=== PATIENT | male | born 1950 | race Caucasian/White ===

== ENCOUNTER 2022-09-30 08:38 | Outpatient (CLI) | payer MEDICARE, SELFPAY ==
--- NOTE | 2022-09-30 06:00 | DI.RAD_ITS ---
Exam(s) XR PAIN CLINIC SACRIOILIAC 2V EXAM: XR PAIN CLINIC SACRIOILIAC 2V CLINICAL HISTORY: Dx: Sacroiliac Joint Dysfunction. TECHNIQUE: Fluoroscopy was provided for the referring physician for guidance with performing pain cl inic injection procedure. COMPARISON: No exams were available for comparison FINDINGS: Please see procedure note for details. Fluoro time: 20.4 seconds RADIATION DOSE DELIVERED: Ka,r=2.83 mGy
[2022-09-30 08:59] VITALS: BP 167/81; PULSE 56; RESP 20; TEMP 36.9; O2SAT 97
[2022-09-30] MEDS: Omnipaque 240 MG/ML 50 ML BTL IJ (09:39)
[2022-09-30] MEDS: methylPREDNISolone ACETATE 80 MG/ML VIAL IJ (09:51)
[2022-09-30 09:54] VITALS: BP 170/75; PULSE 63; RESP 17; O2SAT 96
--- NOTE | 2022-09-30 09:57 | PDOC.PAIN_ITS ---
Date of service: 09/30/22 Time of Service: 10:20 Pain Clinic Procedure Note Procedure Note Procedure Note: INTRA-ARTICULAR SI JOINT INJECTION Ham MULLER has been referred to the [facility] for intra- articular SI joint injection. COMMENTS: Patient has pain directly over the left sacroiliac joint. He is also experiencing left radicular pain to the left leg to the lateral thigh and calf along with left foot drop X 3..5 weeks. He did have a fall 3 months ago in which he hurt is back. He no strength to left ankle dorsiflexion on examination and 5/5 strength on the right. For this reason, I did order an MRI of the lumbar spine STAT. Dx: Left sacroiliac joint dysfunction. VAS pain was 4/10 prior to the procedure. Patient was interviewed and the medical record reviewed. There were no medical, pharmacologic, radiographic or other structural contraindications to attempting fluoroscopically guided intra-articular SI joint injection. Risks and expected side effects as well as potential benefit of the procedure were reviewed and voiced concerns addressed. The printed consent form was signed and witnessed. Standard time-out procedure was performed. Patient was placed in the prone position on the fluoroscopy table and automated blood pressure cuff and pulse oximeter applied. The skin entry point for approaching the left SI joint was identified under the most advantageous fluoroscopic view and marked. Following thorough Chlorhexadine preparation of the skin and draping and 1% lidocaine infiltration of the skin entry point and subcutaneous tissues, a 22 gauge spinal needle was placed under fluoroscopic guidance into the left SI joint was identified under the most advantageous fluoroscopic view and marked. Intra-articular placement was confirmed by a clear arthrogram resulting from the injection of 0.25ml Omnipaque 240, 1ml 1% lidocaine, and 40mg Depomedrol were injected intra-articularily with an initial reproduction of a significant component of the usual pain. Vital signs were stable throughout the procedure and were as recorded in the docflowsheet by the nursing staff. If given, dosages of intravenous drugs for anxiolysis and analgesia were documented in MAR. Follow up plans and appointments were discussed with the patient. Post procedure instruction was given as documented in nursing documentation and having met discharge criteria, and was discharged from the [facility] Management Center. COMMENTS: Post-procedure pain VAS was 3/10. If this procedure is helpful, it can be completed up to 3 times per 12 months. Ever Mcclain DO, MPH ABPMR-Pain Management [facility] CC: Tammy Patrick
== END 2022-09-30 08:39 | disposition home or self-care (01) ==
PROVIDERS: PCP Family Medicine; Visit Provider Preventive Medicine Occupational Medicine
DX: M54.50 Low back pain, unspecified (principal); M53.3 Sacrococcygeal disorders, not elsewhere classified
CPT/HCPCS: 72200; G0260; J1040; Q9967

== ENCOUNTER 2023-04-14 11:15 | Outpatient (CLI) | payer MEDICARE, SELFPAY ==
--- NOTE | 2023-04-14 06:00 | DI.RAD_ITS ---
Exam(s) XR PAIN CLINIC LUMBAR SP 2V EXAM: XR PAIN CLINIC LUMBAR SP 2V CLINICAL HISTORY: Dx: Lumbar Radiculopathy. TECHNIQUE: Fluoroscopy was provided for the referring physician for guidance with performing pain cl inic injection procedure. COMPARISON: No exams were available for comparison FINDINGS: Please see procedure note for details. Fluoro time: 32.8 seconds RADIATION DOSE DELIVERED: Ka,r=15.22 mGy
[2023-04-14 11:28] VITALS: BP 164/74; PULSE 53; RESP 20; TEMP 36.6; O2SAT 94
[2023-04-14] MEDS: Dexamethasone Sod. Phos./Pres-Free 10 MG/ML VIAL IJ (12:16)
[2023-04-14] MEDS: Omnipaque 240 MG/ML 50 ML BTL IJ (12:16)
[2023-04-14 12:17] VITALS: BP 142/72; PULSE 53; RESP 17; O2SAT 93
--- NOTE | 2023-04-14 12:18 | PDOC.PAIN ---
Date of service: 04/14/23 Time of Service: 12:18 Pain Managment Procedure Note Procedure Note Procedure Note: PROCEDURE NOTE LEFT L5 TRANSFORAMINAL EPIDURAL STEROID INJECTION Chief Complaint: LEFT leg pain. Date of Service: April 14, 2023 Patient: Ham MULLER Provider: Ever Dykes DO, MPH Ham Maris MULLER has been referred to the [facility] for a transforaminal epidural steroid injection. Pre-operative diagnosis: Lumbosacral Radiculopathy Post-operative diagnosis: Same Pre-Procedure Pain: VAS= 7/10 Comments: I previously evaluated the patient in our clinic and their symptoms remain the same as they were at that time. Ham was interviewed and the medical record reviewed. There were no medical, pharmacologic, radiographic or other structural contraindications to attempting a fluoroscopically-guided transforaminal lumbar epidural steroid injection. The risks, benefits, and potential side effects were reviewed with the patient. Risks include, but are not limited to, [id number] headache, infection, bleeding, nerve injury, spinal cord damage, allergic reaction, possible increase in symptoms over the ensuing 24 to 48 hours, paralysis, and . The patient appeared to understand, questions were answered to the patient?s satisfaction and the patient agreed to proceed. Once I obtained informed verbal consent, the printed consent form was signed by the patient and myself. A standard time-out procedure was performed. Ham was placed in the prone position on the fluoroscopy table and automated blood pressure cuff, three lead EKG, and pulse oximeter were applied. The skin entry point for entering/approaching the left L5 space for the transforaminal epidural steroid injection was marked. Following thorough chlorhexadine preparation of the skin and draping, 2 ml of 1% lidocaine was infiltrated into the skin over the entry point and subcutaneous tissues. Under fluoroscopic guidance, in ipsilateral oblique view, a co-axial approach using a 5 22G spinal needle was advanced to the base of the L5 pedicle. The needle was advanced to the superio-posterior aspect of the neural foramen under lateral view. Oblique and AP views were rechecked. Under AP and lateral views, 1 ml of Omnipaque-240 was injected while visualized with fluoroscopy. There was no evidence of intravascular or intrathecal uptake, the epidural space was delineated. Next 1.5 ml of preservative-free Dexamethasone (10 mg/ml) was injected after negative aspiration. This was followed by 1 ml of preservative-free 1% lidocaine. (49 mls of Omnipaque-240 was wasted) There was no unusual discomfort expressed by Ham. The needle was withdrawn without difficulty. Ham was observed and was without hemodynamic, neurologic, or allergic reactions.? Fluoroscopic images were digitally archived. Ham's vital signs were stable throughout the procedure and were as recorded in the docflowsheet by the nursing staff.? If given, dosages of intravenous drugs for anxiolysis and analgesia were documented in MAR. Follow up plans and appointments were discussed with Ham. Post procedure instruction was given as documented in nursing records and having met discharge criteria Ham was discharged from the Pain Management Center. COMMENTS: Post-procedure pain: VAS= 2/10. Ham to contact [facility] as needed. If at least 50% improvement in pain and/or function for at least 3 months is achieved, this procedure can be repeated. I personally performed this entire procedure. EVER DYKES DO, MPH ABPMR-subspecialty board certification in Pain Medicine [facility]
== END 2023-04-14 11:16 | disposition home or self-care (01) ==
LOC: PC 11:15
PROVIDERS: PCP Family Medicine; Visit Provider Preventive Medicine Occupational Medicine
DX: M54.50 Low back pain, unspecified (principal); M54.17 Radiculopathy, lumbosacral region
CPT/HCPCS: 64483; 72100; Q9967

== ENCOUNTER 2023-12-30 11:08 | Outpatient (CLI) | payer MEDICARE, SELFPAY ==
[2023-12-30 11:36] VITALS: BP 162/89; PULSE 54; RESP 20; TEMP 36.7; O2SAT 96
[2023-12-30 12:19] VITALS: BP 185/89; PULSE 54; RESP 13; O2SAT 95
[2023-12-30] MEDS: Nerve Block Tray 1 EACH MC (12:20)
[2023-12-30] MEDS: Omnipaque 240 MG/ML 50 ML BTL IJ (12:20)
[2023-12-30] MEDS: methylPREDNISolone ACETATE 80 MG/ML VIAL IJ (12:21)
--- NOTE | 2023-12-30 12:21 | PDOC.PAIN ---
Date of service: 12/30/23 Time of Service: 12:21 Pain Managment Procedure Note Procedure Note Procedure Note: PROCEDURE NOTE RIGHT INTRA-ARTICULAR SACROILIAC JOINT INJECTION Date of Service: December 30, 2023 Patient: Ham MULLER Provider: Ever Dykes DO, MPH COMMENTS: I previously evaluated the patient in the office and their symptoms in relation to the sacroiliac joint pain have remained the same. Pre-operative diagnosis: Sacroiliac joint dysfunction Post-operative diagnosis: Same Pre-procedure pain: VAS= 8/10 Ham MULLER has been referred to our [facility] for a Right intra-articular Sacroiliac joint injection. Ham was interviewed and the medical record reviewed. There were no medical, pharmacologic, radiographic or other structural contraindications to attempting a fluoroscopically-guided, contrast-enhanced, intra-articular Sacroiliac joint injection. The risks, benefits, and potential side effects of this procedure were reviewed with the patient. Questions and concerns were addressed. After it was clear that Ham was fully informed about the procedure, the printed consent form was signed by the patient and myself. Ham was placed in the prone position on the fluoroscopy table and an automated blood pressure cuff, 3 lead EKG, and pulse oximeter were applied. The skin entry point for approaching the Right sacroiliac joint was identified under the most advantageous fluoroscopic view and marked. Following thorough Chlorhexadine preparation of the skin and draping with sterile surgical drapes, 2 mls of 1% lidocaine was infiltrated into the skin at the entry point and the surrounding subcutaneous tissues. Next, a 3.5 22G spinal needle was placed under fluoroscopic guidance into the Right sacroiliac joint. Intra-articular placement was confirmed by a clear arthrogram resulting from the injection of 0.25ml of Omnipaque-240. Next, 1 ml of Depo- Medrol 80 mg/ml was injected intra-articularly with an initial reproduction of a significant component of the usual pain. This was followed with 1 ml of 1% Lidocaine. The needle was then removed without difficulty. (49 ml of Omnipaque-240 was wasted). Ham's vital signs were stable throughout the procedure and were as recorded in nursing records. Follow up plans and appointments were discussed with Ham. Post procedure instructions were given as documented in nursing records. Having met discharge criteria, Ham was discharged from the [facility]. COMMENTS: Post-procedure pain: VAS= 8/10. If the patient receives at least 50% improvement in pain and/or function for at least 3 months, this procedure can be repeated if needed. I personally performed this entire procedure. EVER DYKES DO, MPH ABPMR-subspecialty board certification in Pain Medicine [facility]
== END 2023-12-30 11:09 | disposition home or self-care (01) ==
LOC: PC 11:09
PROVIDERS: PCP Family Medicine; Visit Provider Preventive Medicine Occupational Medicine
DX: M46.1 Sacroiliitis, not elsewhere classified (principal); M54.50 Low back pain, unspecified
CPT/HCPCS: 27096; 76000; J1010; Q9967

== ENCOUNTER 2025-08-08 11:38 | Outpatient (CLI) | payer MEDICARE, SELFPAY ==
[2025-08-08 11:38] VITALS: BP 157/85; PULSE 48; RESP 18; TEMP 36.4; O2SAT 97
[2025-08-08 13:15] VITALS: PULSE 45; O2SAT 97
[2025-08-08 13:20] VITALS: PULSE 40; O2SAT 98
[2025-08-08] MEDS: Lidocaine 2% Pres-Free 5 ML VIAL IJ (13:35)
[2025-08-08] MEDS: Nerve Block Tray 1 EACH MC (13:36)
[2025-08-08] MEDS: methylPREDNISolone ACETATE 40 MG/ML VIAL IJ (13:36)
--- NOTE | 2025-08-08 14:44 | PDOC.PAIN_ITS ---
Date of service: 08/08/25 Time of Service: 12:45 US Guided Injections Type of Ultrasound Guided Injection: Right Gluteus medius muscle Buttock Trigger Point Injection Pre-Procedural Evaluation Pain to palpation over the right gluteus medius muscle and tendon Referral Patient has been referred to the Pain Management Center for Right Gluteus medius muscle Buttock Trigger Point Injection for a chief complaint of Right buttock pain Pre-Procedural Pain Score Pre-procedural pain score: 7/10 Reason for Exam Right buttock pain Patient Interview Patient was interviewed and medical record reviewed: Yes There were no contraindications to performing an US guided procedure. Risks,expected side effects, potential benefits were reviewed. The patient consent form was signed and witnessed. Standard time out procedure was performed. Patient Safety No significant skin issues at the injection sites Procedure Description No sedation given for procedure Patient was placed in the left lateral recumbent position and the following Pulse Ox applied. Pre-Procedure ultrasound scanning performed using a Linear 9 MHz probe Site Preparation Chloroprep Local Anesthesia Skin and subcutaneous tissues anesthetized with: 2 mL of Lidocaine 2%. A 21 G 3.5 Pajunk ultrasound needle was placed under live US guidance using an in-plane approach to the target area. After visualization of the needle tip at the target area Depo-Medrol 40mg per cc and Lidocaine 2% were used. Total of Injectate/Medication Note: 2 cc of Depomedrol and 5 cc of 2% Lidocaine Negative aspiration for blood. [place] were removed without difficulty. Ultrasound images were captured and stored. Patient Mental Status Patient was alert and awake during procedure Vital Signs Vital signs were stable throughout the procedure and recorded by nursing. Follow Up/Discharge Follow up plans and appointments were discussed with patient. Post procedure instruction was given as documented in nursing documentation. Discharge criteria met and patient discharged from Pain Management Center: Yes Post Procedure Pain Post Procedure Pain: 4/10 Patient tolerated procedure well Procedure Outcome: Successful Non US Guided Injections Procedure Description Patient was placed in the left lateral recumbent position Post Procedure Pain Post Procedure Pain: 4/10 Coding Conscious Sedation used for procedure: No CPT Codes: TPI Single/Multi 1 or 2 Muscles - ([id number] ~G) Additional Codes: Visualization of the needle tip - Ultrasound images captured/stored: Yes ([id number]) Date of Service () Diagnoses: Muscle pain
== END 2025-08-08 11:39 | disposition home or self-care (01) ==
LOC: PC 11:39
PROVIDERS: PCP Family Medicine; Visit Provider Preventive Medicine Occupational Medicine
DX: M79.18 Myalgia, other site (principal); M79.604 Pain in right leg
CPT/HCPCS: 20552; 76942; J1010